=== PATIENT | female | born 1985 | race Caucasian/White ===

== ENCOUNTER 2018-02-24 12:56 | Emergency (ER) | payer OTHER ==
[~2018-02-24] VITALS: Ht 157.5 cm; Wt 99.8 kg
[2018-02-24] MEDS ORDERED: AUGMENTIN 875-1 EACH PO ×2 (13:01→13:34)
[2018-02-24] MEDS ORDERED: IBUPROFEN 800800 M1 PO (13:34)
[2018-02-24] MEDS ORDERED: TRAMADOL 50 MG50 MG PO (13:34)
[2018-02-24 13:51] VITALS: BP 133/72
== END 2018-02-24 13:52 | disposition home or self-care (01) ==
LOC: M.ERS 12:56
DX: S61.412A Laceration without foreign body of left hand, initial encounter (principal); W55.01XA Bitten by cat, initial encounter; Y93.89 Activity, other specified; Y92.89 Other specified places as the place of occurrence of the external cause; Y99.8 Other external cause status; J45.909 Unspecified asthma, uncomplicated; Z90.49 Acquired absence of other specified parts of digestive tract

== ENCOUNTER 2020-08-25 17:32 | Emergency (ER) | payer OTHER ==
[~2020-08-25] VITALS: Ht 157.5 cm; Wt 93.0 kg
[~2020-08-25 17:32] MED LIST: AUGMENTIN 875-1 EACH PO; IBUPROFEN 800800 M1 PO; TRAMADOL 50 MG50 MG PO
[2020-08-25] MEDS ORDERED: [UNRECOGNIZED DRUG - OTHER] (17:43)
[2020-08-25] MEDS ORDERED: PREDNISONE 10 M10 M1 PO (17:56)
[2020-08-25 18:14] VITALS: BP 158/90
== END 2020-08-25 18:15 | disposition home or self-care (01) ==
LOC: M.ERS 17:32
DX: L25.9 Unspecified contact dermatitis, unspecified cause (principal); J45.909 Unspecified asthma, uncomplicated; Z90.49 Acquired absence of other specified parts of digestive tract